=== PATIENT | female | born 1980 | race Caucasian/White ===

== ENCOUNTER 2024-02-24 02:49 | Emergency (ER) | payer MEDICARE, MEDICAID, SELFPAY ==
--- NOTE | ~2024-02-24 | XR_ITS ---
EXAMINATION: XR CHEST CLINICAL INFORMATION: Cough. COMPARISON: None available. TECHNIQUE: Frontal view of the chest was obtained. FINDINGS: The lung volumes are relatively low. The cardiomediastinal silhouette is normal. There is bilateral mid to lower lung field interstitial prominence/increased markings. There is no focal lung consolidation or pleural effusions. The bony structures and the soft tissues are unremarkable. XR/XR chest 1V IMPRESSION: No focal lung consolidation. There is bilateral mid to lower lung field interstitial prominence/increased markings. Consider changes related to bronchitis. Electronically signed by: Sherman Vazquez MD 02/24/2024 06:34 AM EDT
[2024-02-24 02:52] VITALS: BP 149/93; PULSE 101; RESP 18; TEMP 37.2; O2SAT 94; BMI 30.4
[2024-02-24 03:21] LABS: IDNOW Serial# 6674DD1D; Strep A Nucleic Acid Negative (Negative)
--- NOTE | 2024-02-24 03:45 | ED_ITS ---
HPI - General Adult General Chief complaint: General Medical Stated complaint: back pain, coughing, blood clot ? Time Seen by Provider: 02/24/24 03:31 Source: patient Mode of arrival: ambulatory Limitations: no limitations History of Present Illness ED Provider: musa SHAH narrative: Patient has been coughing for last 1 month was at [facility] a week ago was given prednisone got little better but again still coughing with sore throat and dry cough giving her headache no other family member sick no fever no chills patient is on Eliquis for PE Related Data Previous Rx's ?Medication ?Instructions ?Recorded cefuroxime axetil 500 mg tablet 500 mg PO BID 7 days #14 tabs 02/24/24 codeine 10 mg-guaifenesin 100 mg/5 10 ml PO Q6H PRN cough #237 mL 02/24/24 mL oral liquid Allergies Allergy/AdvReac Type Severity Reaction Status Date / Time methylprednisolone Allergy Chest Pain Verified 02/24/24 02:57 Review of Systems Review of Systems: Yes all other systems are reviewed and are negative [facility] Social History Social History Advance Directives: No Advance Directives Information Provided: Yes Physical Exam ED Vital Signs: Vital Signs - 24 hr 02/24/24 02:52 Temperature 99.0 F Pulse Rate 101 H Respiratory Rate 18 Blood Pressure 149/93 H Pulse Oximetry 94 Oxygen Delivery Method Room Air BMI result Body Mass Index 30.4 Appearance: Alert. Oriented X3. No acute distress. ENT: Pharynx slight erythema Oral Mucosa moist tympanic membrane intact Neck: Normal inspection. Neck supple. CVS: Normal heart rate and rhythm. Pulses normal. Respiratory: No respiratory distress. Equal air entry bilateral, no wheezing/rales/rhonchi Skin: Skin warm and dry. Normal skin color. Normal skin turgor. Extremities: No lower extremity edema. Neuro: Oriented X 3. Medical Decision Making Medical Decision Making [facility] Narrative: Patient with URI with acute bronchitis chest x-ray negative COVID flu RSV strep negative likely bronchitis will prescribe antibiotics and cough syrup Lab Data [facility] Lab Attestation statement: I reviewed the patient's lab results. Labs: Lab Results 02/24/24 Range/Units 03:05 Influenza Type A (PCR) NEGATIVE (Negative) Influenza Type B (PCR) NEGATIVE (Negative) RSV RNA Qual (PCR) NEGATIVE (Negative) SARS-CoV-2 RNA (RT-PCR) NEGATIVE (Negative) S. pyogenes GrpA CARLOS Negative (Negative) Independent Interpretation I performed an independent interpretation of an: Plain X-Ray Radiology Impression Discussion of test interpretation with radiology: I have reviewed the radiologist's reading. Discharge Plan Discharge Clinical Impression: Acute bronchitis Patient Disposition: Home, Self-Care Instructions: Acute Bronchitis (ED) Additional Instructions: Take antibiotic as prescribed Cough drops as prescribed Follow with your PCP if not better Prescriptions: New codeine-guaifenesin 10-100 mg/5 mL liquid 10 ml PO Q6H PRN (Reason: cough) Qty: 237 0RF cefuroxime axetil 500 mg tablet 500 mg PO BID 7 Days Qty: 14 0RF Print Language: [place]
[2024-02-24 03:50] LABS: Influenza A PCR NEGATIVE (Negative); Influenza B PCR NEGATIVE (Negative); Resp Syncy Virus RNA Qual PCR NEGATIVE (Negative); SARS COV2 PCR INHOUSE NEGATIVE (Negative)
[2024-02-24] MEDS: guaiFEN/Codeine SF 200/20/10ML 10 ML LIQUID PO (04:09)
[2024-02-24] MEDS: cefuroxime axetiL 500 MG TABLET PO (04:09)
[2024-02-24 04:10] VITALS: BP 149/93; PULSE 101; RESP 18; TEMP 37.2; O2SAT 94
== END 2024-02-24 04:13 | disposition home or self-care (01) ==
PROVIDERS: Emergency Provider Internal Medicine; PCP Internal Medicine
DX: J20.9 Acute bronchitis, unspecified (principal); J02.9 Acute pharyngitis, unspecified; Z03.818 Encounter for observation for suspected exposure to other biological agents ruled out
CPT/HCPCS: 0241U; 71045; 87651; 99282; 99283